=== PATIENT | female | born 1955 | race Caucasian/White ===

== ENCOUNTER 2019-11-27 09:15 | Day surgery (SDC) | payer OTHER ==
[2019-11-26 15:41] VITALS: BMI 30.4
[2019-11-27 11:12] VITALS: BP 130/76; PULSE 66
[2019-11-27 12:13] VITALS: TEMP 98
--- NOTE | 2019-12-01 17:08 | PATH ---
Surgical Pathology Report Patient Name: LIANNE SAUCEDA [facility]. Rec. #: [id number] /Age/Gender: 1955 (Age: 64) / F Account: [id number] Location: [facility] AM[facility] Taken: 11/27/2019 Received: 11/27/2019 Reported: 12/01/2019 Physicians: Roseann Corona M.D. Specimen(s) Received A: SECOND PORTION OF DUODENUM B: DUODENAL BULB AND POLYP C: ANTRUM D: GE JUNCTION Clinical History Dyspepsia, reflux Postoperative diagnosis: Ulcers, duodenal bulb polyp Final Diagnosis A. SECOND PORTION OF DUODENUM, BIOPSY: DUODENAL MUCOSA WITH NO PATHOLOGIC FINDINGS. B. DUODENAL BULB AND POLYP, BIOPSY: GASTRIC HETEROTOPIA WITH MODERATE CHRONIC INFLAMMATION. C. ANTRUM, BIOPSY: MILD CHRONIC GASTRITIS. IMMUNOSTAIN IS NEGATIVE FOR H. PYLORI ORGANISMS. D. GE JUNCTION, BIOPSY: ESOPHAGOGASTRIC JUNCTIONAL (SQUAMOCOLUMNAR) MUCOSA SHOWING INTESTINAL METAPLASIA, COMPATIBLE WITH CHAMPION'S ESOPHAGUS IN CONJUNCTION WITH APPROPRIATE ENDOSCOPIC FINDINGS. NEGATIVE FOR DYSPLASIA. Electronically Signed Leela Veloz M.D. Gross Description A. Received in formalin, labeled "second portion duodenum" is a dong, irregular portion of soft tissue measuring 0.6 cm. in greatest dimension. The specimen is submitted in toto in one cassette. B. Received in formalin, labeled "duodenal bulb and polyp" are 3 dong, irregular portions of soft tissue averaging 0.1 cm. in greatest dimension. The specimens are submitted in toto in one cassette. C. Received in formalin, labeled "antrum" is a dong, irregular portion of soft tissue measuring 0.7 cm. in greatest dimension. The specimen is submitted in toto in one cassette. D. Received in formalin, labeled "GE junction" is a dong, irregular portion of soft tissue measuring 0.3 cm. in greatest dimension. The specimen is submitted in toto in one cassette. 11/30/2019 [facility]11/30/2019
== END 2019-11-27 11:40 | disposition home or self-care (01) ==
LOC: FASU 09:15
PROVIDERS: ATTEND Internal Medicine Gastroenterology
PROC: 0DB68ZX Excision of Stomach, Via Natural or Artificial Opening Endoscopic, Diagnostic (ICD-10-PCS; 2019-11-27)
PROC: 0DB48ZX Excision of Esophagogastric Junction, Via Natural or Artificial Opening Endoscopic, Diagnostic (ICD-10-PCS; 2019-11-27)
PROC: 0DB98ZX Excision of Duodenum, Via Natural or Artificial Opening Endoscopic, Diagnostic (ICD-10-PCS; principal; 2019-11-27 10:19)
DX: K31.7 Polyp of stomach and duodenum (principal); K25.9 Gastric ulcer, unspecified as acute or chronic, without hemorrhage or perforation; K29.50 Unspecified chronic gastritis without bleeding; K29.80 Duodenitis without bleeding; K22.70 Barrett's esophagus without dysplasia; R10.13 Epigastric pain
CPT/HCPCS: 88305-TC; 88342-TC

== ENCOUNTER 2020-01-22 11:25 | Day surgery (SDC) | payer OTHER ==
--- OUTSIDE RECORDS SUMMARY | 2020-01-13 08:55 | XMS ---
:1955 Author Organization [facility] Care Team Providers Name Role Phone DallasSolitario abraham Dennis Unavailable Unavailable Tiffany Crane Unavailable Unavailable Radha Bess Unavailable Unavailable Jett Ferraro Unavailable Unavailable Landen Unavailable Unavailable Aditi ROD, Physician Unavailable Unavailable Re-disclosure Warning The records that you are about to access may contain information from federally- assisted alcohol or drug abuse programs. If such information is present, then the following federally mandated warning applies: This information has been disclosed to you from records protected by federal confidentiality rules (42 CFR part 2). The federal rules prohibit you from making any further disclosure of this information unless further disclosure is expressly permitted by the written consent of the person to whom it pertains or as otherwise permitted by 42 CFR part 2. A general authorization for the release of medical or other information is NOT sufficient for this purpose. The Federal rules restrict any use of the information to criminally investigate or prosecute any alcohol or drug abuse patient.The records that you are about to access may contain highly sensitive health information, the redisclosure of which is protected by Article 27-F of the [place] State Public Health law. If you continue you may haveaccess to information: Regarding HIV / AIDS; Provided by facilities licensed or operated by the [facility] Office of Mental Health; or Provided by the [facility] Office for People With Developmental Disabilities. If such information is present, then the following [facility] mandated warning applies: This information has been disclosed to you from confidential records which are protected by state law. State law prohibits you from making any further disclosure of this information without the specific written consent of the person to whom it pertains, or as otherwise permitted by law. Any unauthorized further disclosure in violation of state law may result in a fine or retirement sentence or both. A general authorization for the release of medical or other information is NOT sufficient authorization for further disclosure. Allergies and Adverse Reactions Type Description Substance Reaction Status Data Source(s ) SHELLFISH DERIVED SHELLFISH DERIVED NEXTGEN ([facility] ) Encounters Encounter Providers Location Date Indications Data Source(s ) Outpatient Attender: Solitario 11/05/2019 NEXTGEN ([facility] WisdomReferrer: 02:00:00 PM Medical - [place] [facility]) Outpatient Attender: Leisa 07/10/2019 NEXTGEN ([facility] AlasioReferrer: Kiki 12:00:00 AM Med ical - [place] [facility] ) Outpatient Attender: Kiki 07/02/2019 NEXTGEN ([facility] 02:12:00 PM [facility] [place] [facility] ) Outpatient Attender: Kiki 06/23/2019 NEXTGEN ([facility] TrakhtReferrer: Kiki 04:40:00 PM Med ica - [place] [facility] ) Outpatient Attender: Leisa 06/23/2019 NEXTGEN ([facility] AlasioReferrer: Kiki 12:00:00 AM Med [facility] - [place] [facility] ) Outpatient Attender: Cait 06/03/2019 NEXTGEN ( [facility] Ron[place] 03:51:00 PM [facility] - [place] [facility] ) Outpatient Attender: Kiki 09/26/2018 NEXTGEN ([facility] 12:29:00 PM [facility] [place] [facility] ) Outpatient Attender: Solitario 08/14/2018 NEXTGEN ([facility] [place] [facility]00:[facility] Outpatient Attender: Kiki 08/11/2018 NEXTGEN ([facility] 03:56:00 PM [facility] [place] [facility]) Outpatient Attender: Physician 08/11/2018 Manuel fonseca [facility] 10:07:22 AM Liz pate MDAdmitter: EDT - Medical [place] kaveh Physician Barbara 08/20/2018 Aditi ROD 11:59:59 PM EDT S Attender: Physician 08/09/2018 Manuel fonseca [facility] 10:11:24 AM Bradley Azul jakob MDAdmitter: EDT Center Physician Barbara Pennington MD Outpatient Attender: 08/06/2018 NEXTGEN ([facility] TrakhtReferrer: Kiki 12:00:00 AM Med ical - [place] [facility]) Outpatient Attender: 07/08/2018 NEXTGEN ([facility] 08:55:00 AM [facility] [place] [facility]) Outpatient Attender: 07/01/2018 NEXTGEN ([facility] TrakhtReferrer: Kiki 03:00:00 PM Med ical - [place] [facility]) Outpatient Attender: Leisa 07/01/2018 NEXTGEN ([facility] AlasioReferrer: Kiki 12:00:00 AM Med ical - [place] [facility]) Outpatient Attender: 06/03/2018 NEXTGEN ([facility] 04:41:00 PM Medical - [place] [facility]) Medications Medication Brand Start Product Dose Route Administrative Pharmacy [facility] Indications Reaction Description Data Name Date Form Instructions Instructions Source(s) pantoprazol PANTOP RP NEXTGE N e 40 MG RAZOLE ([facility] Delayed SODIUM Medical - Release [place] Oral Tablet Medical 40 mg 40 mg Group PC ) This may be an active medication. No end date is available. Start date above may not reflect actual date the medication was s tarted. Ofloxacin 3 OFLOXACIN 11/06/2019 instill 4 RP [facility] MG/ML Otic 12:00:00 AM EDT drop by otic ([facility] Solution 0.3 % route 2 times Medical - [place] 0.3 % every day [place] [facility] into affected Group PC) ear(s) for 3 days This may be an active medication. No end date is available. pantoprazole 40 PROTONIX 11/05/2019 take 1 twice RP [facility] MG Delayed 12:00:00 AM daily for 14 ([facility] Release Oral EDT days;1 daily Medical - [place] Tablet [Protonix] for 7 days [facility] 40 mg 40 mg then 1 every Group PC) other day follow up if symptoms persist. Betamethasone 0.5 LOTRISONE 09/26/2018 APPLY TO THE RP NEXTGEN MG/ML / 12:00:00 AM AFFECTED AND ([facility] Clotrimazole 10 EDT SURROUNDING Medical - [place] MG/ML Topical AREAS OF SKIN [facility] Cream [Lotrisone] TWO TIMES A Group PC) 1 %-0.05 % 1 DAY ( ONCE IN %-0.05 % THE MORNING AND ONCE IN THE EVENING ) This may be an active medication. No end date is available. Amoxicillin 875 AUGMENTIN 05/30/2017 take 1 RP [facility] MG / Clavulanate 12:00:00 AM EST tablet by ([facility] 125 MG Oral oral route Me dical - [place] Tablet every 12 [place] [facility] [Augmentin] 875 hours [facility]ra up PC) mg-125 mg 875 mg-125 mg This may be an active medication. No end date is available. Acetaminophen 325 PERCOCET 08/29/2016 take 1 - 2 RP [facility]EXT[facility] MG / Oxycodone 12:00:00 AM EDT tablet by ([facility] Hydrochloride 5 MG oral route Medical - [place] Oral Tablet every 4 - 6 [facility] [Percocet] 5 hours as [facility] up PC) mg-325 mg 5 mg-325 needed mg This may be an active medication. No end date is available. Levothyroxine LEVOTHYROXINE 05/05/2015 take 1 RP [facility]EXT[facility] Sodium 0.15 MG SODIUM 12:00:00 AM tablet by ([facility] Oral Tablet 150 EST oral Medi arlette - [place] mcg 150 mcg route [place] [facility] every day Group PC) This may be an active medication. No end date is available. Rosuvastatin CRESTOR 03/04/2015 take 1 RP NEXTGEN calcium 10 MG Oral 12:00:00 AM EST tablet by ([facility] Tablet [Crestor] oral route Medical - [facility] 10 mg 10 mg every day [facility]) This may be an active medication. No end date is available. Omeprazole 20 OMEPRAZOLE 11/08/2014 take 1 RP [facility]EXT[facility] MG Delayed 12:00:00 AM EDT capsule by ([facility] Release Oral oral route M edical - [facility] Capsule 20 mg every day [facility] 20 mg before a Group PC) meal This may be an active medication. No end date is available. 10 mg 10 mg 11/08/2014 12:00:00 take 1 tablet by R P NEXTGEN ([facility] AM EDT oral route Medical - [place] every day in the Med ical Group PC) evening This may be an active medication. No end date is available. 200 ACTUAT PROAIR HFA 08/02/2014 inhale 2 puff RP NEXTGEN Albuterol 0.09 12:00:00 AM EDT by inhalation ([facility] MG/ACTUAT route every 4 Medical - [facility] Metered Dose - 6 hours as [facility] Inhaler needed Group PC) [ProAir] 90 mcg 90 mcg This may be an active medication. No end date is available. Hydrocortisone 25 ANUSOL-HC 04/19/2014 apply by RP [facility] MG/ML Topical 12:00:00 AM topical ([facility] Cream [Anusol HC] EST route 2 Medical - [facility] 2.5 % 2.5 % times every [facility] day to the Group PC) affected area(s) This may be an active medication. No end date is available. 0.3 mg/0.3 mL 04/20/2013 use as directed RP NEXTGEN (1:1,000) 0.3 12:00:00 AM EST ([facility] mg/0.3 mL Medical - [place] (1:1,000) [place] [facility]) This may be an active medication. No end date is available. Cyclobenzaprine Flexeril 10 04/18/2013 10.0 Oral Nuvance hydrochloride 10 mg oral 04:28:00 PM mg 10 mg, = 1 tab, Oral, BID, # 15 tab, 0 Refill(s), for spasm Health - MG Oral Tablet tablet EST Vas patrick Flexeril 10 mg [facility] oral tablet [facility] omeprazole [id number] 04/18/2013 N uvance 01:31:00 PM 0 Refill(s) H ealth - EST [facility] Singulair [id number] 04/18/2013 Nu jerez 01:31:00 PM 0 Refill(s) H ealth - EST [facility] Crestor [id number] 04/18/2013 Nuva nce 01:31:00 PM 0 Refill(s) H ealt - EST [facility] Levothyroxine Synthroid 04/18/2013 Nuvance Sodium 0.175 MG 175 mcg 01:31:00 PM 0 Refill(s) Health - Oral Tablet (0.175 mg) EST Va ssar Synthroid 175 mcg oral tablet [facility] (0.175 mg) oral Medi arlette tablet Center Insurance Providers Payer name Policy type Policy ID Covered Covered alliance party's Policy P ulices / Coverage alliance party ID relationship to Mcmahon Inf ormation type mcmahon AETNA O [id number] SP [id number] AETN Aet [id number] [facility] [id number] 1 [id number] Health Plan [place] Problems, Conditions, and Diagnoses Code Display Name Description Problem Type Effective Data Dates Source(s) K21.9 Gastro-esophageal Laryngopharyngeal Diagnosis 11/05/2019 NEXTGEN reflux disease reflux (LPR) 02:00:00 PM ([facility] without EDT [facility] esophagitis [facility] Group PC) H61.23 Impacted cerumen, Bilateral impacted Diagnosis 11/05/2019 NEXTGEN bilateral cerumen 02:00:00 PM ([facility] EDT [facility] Group PC) Z01.419 Encounter for Encounter for Diagnosis 06/23/2019 NEXTGEN gynecological gynecological 04:40:00 PM ([facility] examination examination EDT [facility] (general) [facility] (routine) without Group P C) abnormal findings N76.3 Subacute and Subacute vulvitis Diagnosis 07/01/2018 NEXTG EN chronic vulvitis 03:00:00 PM ([facility] EDT [facility] Group PC) Surgeries/Procedures Procedure Description Date Indications Data Source(s) DIAGNOSTIC DIAGNOSTIC 11/05/2019 NEXTGEN ([facility] LARYNGOSCOPY [facility] REMOVE IMPACTED EAR REMOVE IMPACTED EAR 11/05/2019 N EXTGEN ([facility] WAX UNI WAX UNI 12:00:00 AM [facility] Medical Group P C) OFFICE/OUTPATIENT OFFICE/OUTPATIENT 11/05/2019 NEXTG EN ([facility] VISIT NEW VISIT NEW 12:00:00 AM [facility] Medical Group P C) PREV VISIT EST AGE PREV VISIT EST AGE 0306/23/2019 NEX TGEN ([facility] 40-64 40-64 12:00:00 AM [facility] Medical Group P C) Results ID Date Data Source [id number] 11/23/2019 11:39:00 AM EDT [facility] Name Value Range Interpretation Description Data Sup porting Code Source(s) Document(s ) SARS [facility] coronavirus 2 RNA This lab was ordered by JAROD ZHOU and reported by [facility]. Procedure Social History Code Duration Value Status Description Data Source(s ) Smoking completed [facility] Patient Treatment Plan of Care Planned Activity Planned Date Details Description Data Source (s) No data available for this N [facility] - section [facility] Cyclobenzaprine 04/18/2013 [facility] th - hydrochloride 10 MG Oral 04:28:00 PM [facility] Levothyroxine Sodium 0.175 04/18/2013 N [facility] - MG Oral Tablet 01:31:00 PM [facility] Singulair 04/18/2013 [facility] - 01:31:00 PM EST [facility] omeprazole 04/18/2013 [facility] - 01:31:00 PM EST [facility] Crestor 04/18/2013 [facility] - 01:31:00 PM [facility]
[2020-01-19 09:46] VITALS: BMI 30.4
--- OUTSIDE RECORDS SUMMARY | 2020-01-22 11:48 | XMS ---
:1955 Author Organization [facility] Care Team Providers Name Role Phone Solitario Kim Unavailable Unavailable Ana M Falcon Unavailable Unavailable Tiffany Crane Unavailable Unavailable Radha Bess Unavailable Unavailable Ronan, Jett Unavailable Unavailable Landen Unavailable Unavailable Re-disclosure Warning The records that [...] is protected by Article 27-F of the [place] State Public Health law. If you continue you may haveaccess to information: Regarding HIV / AIDS; Provided by facilities licensed or operated by the [facility] Office of Mental Health; or Provided by the [facility] Office for People With Developmental Disabilities. If such information is present, then the following [facility] mandated warning applies: This information has been [...] law may result in a fine or correction sentence or both. A general authorization for the release of medical or other information is NOT sufficient authorization for further disclosure. Allergies and Adverse Reactions Type Description Substance Reaction Status Data Source(s ) SHELLFISH DERIVED SHELLFISH DERIVED NEXTGEN ([facility] [place] [facility] ) Encounters Encounter Providers Location Date Indications Data Source(s ) Outpatient Attender: Cosme 12/09/2019 NEXTGEN ( [facility] [place] 12:00:00 AM [facility] - [place] [facility] ) Outpatient Attender: Solitario 11/05/2019 NEXTGEN ([facility] WisdomReferrer: 02:00:00 PM [facility] - [place] [facility] Outpatient Attender: Leisa 07/10/2019 NEXTGEN ([facility] AlasioReferrer: Kiki 12:00:00 AM Med ical - [place] [facility] ) Outpatient Attender: Kiki 07/02/2019 NEXTGEN ([facility] 02:12:00 PM Medical - [place] [facility] ) Outpatient Attender: Kiki 06/23/2019 NEXTGEN ([facility] TrakhtReferrer: Kiki 04:40:00 PM Med ical - [place] [facility] ) Outpatient Attender: Leisa 06/23/2019 NEXTGEN ([facility] AlasioReferrer: Kiki 12:00:00 AM Med ical - [place] [facility] ) Outpatient Attender: Cait 06/03/2019 NEXTGEN ( [facility] [place] 03:51:00 PM Medical - [place] [facility] ) Outpatient Attender: Solitario 08/14/2018 NEXTGEN ([facility] [place] 12:00:00 AM [facility] - [place] [facility] ) Medications Medication Brand Start Product Dose Route Administrative Pharmacy [facility] Indications Reaction Description Data Name Date Form [...] hours as [facility] [facility] Inhaler needed Group ) [ProAir] 90 mcg 90 mcg This may [...] ([facility] mg/0.3 mL Medical - [place] (1:1,000) [facility]) This may be an active medication. No end date is available. Insurance Providers Payer name Policy type Policy ID Covered Covered green party's Policy P ulices / Coverage green party ID relationship to Mcmahon Inf ormation type mcmahon AETNA HMO [id number] SP [id number] AETN Aetna [id number] [facility] [id number] Health Plan [place] Problems, Conditions, and Diagnoses Code Display Name Description Problem Type Effective Data Dates Source(s) K21.9 Gastro-esophageal Laryngopharyngeal Diagnosis 11/05/2019 NEXTGEN reflux disease reflux (LPR) 02:00:00 PM ([facility] without EDT Medical - [place] esophagitis [facility] Group PC) H61.23 Impacted cerumen, Bilateral impacted Diagnosis 11/05/2019 NEXTGEN bilateral cerumen 02:00:00 PM ([facility] EDT Medical - [facility] Group [facility]) Z01.419 Encounter for Encounter for Diagnosis 06/23/2019 NEXTGEN gynecological gynecological 04:40:00 PM ([facility] examination examination EDT Medical - [place] (general) [facility] (routine) without Group P C) abnormal findings Surgeries/Procedures Procedure Description Date Indications Data Source(s) DIAGNOSTIC DIAGNOSTIC 11/05/2019 NEXTGEN ([facility] LARYNGOSCOPY LARYNGOSCOPY 12:00:00 AM [facility]) REMOVE IMPACTED EAR REMOVE IMPACTED EAR 11/05/2019 N EXTGEN ([facility] WAX UNI WAX UNI 12:00:00 AM [facility]) OFFICE/OUTPATIENT OFFICE/OUTPATIENT 11/05/2019 NEXTG EN ([facility] VISIT NEW VISIT NEW 12:00:00 AM [facility] P [facility]) PREV VISIT EST AGE PREV VISIT EST AGE 0306/23/2019 NEX TGEN ([facility] 40-64 40-64 12:00:00 AM [facility]) Results ID Date Data Source [id number] 01/18/2020 11:45:00 AM EDT [facility] Name Value Range Interpretation Description Data Sup porting Code Source(s) Document(s ) SARS [facility] coronavirus 2 RNA This lab was ordered by JAROD ZHOU and reported by [facility]. ID Date Data Source [id number] 11/23/2019 11:39:00 AM EDT [facility] Name Value Range Interpretation Description Data Sup porting Code Source(s) Document(s ) SARS [facility] coronavirus 2 RNA This lab was ordered by JAROD ZHOU and reported by [facility]. Procedure
[2020-01-22 14:14] VITALS: BP 105/71; PULSE 65; TEMP 97.6
--- NOTE | 2020-01-26 15:27 | PATH ---
Surgical Pathology Report Patient Name: LIANNE SAUCEDA [facility]. Rec. #: [id number] /Age/Gender: 1955 (Age: 64) / F Account: [id number] [facility] Taken: 01/22/2020 Received: 01/22/2020 Reported: 01/26/2020 Physicians: Roseann Corona M.D. Specimen(s) Received A: POLYP DUODENAL BULB B: ANTRUM C: GE JUNCTION D: POLYPECTOMY TRANSVERSE COLON AT 65CM E: POLYP SIGMOID COLON Clinical History Followup Champion's, family history of colon cancer Postoperative diagnosis: Duodenal bulb polyp, healed ulcers, Champion's esophagus, colon polyps, hemorrhoids Final Diagnosis A. DUODENAL BULB, POLYP, BIOPSY: DUODENAL MUCOSA WITH SEVERE CHRONIC DUODENITIS AND GASTRIC HETEROTOPIA. B. GASTRIC ANTRUM, BIOPSY: GASTRIC ANTRAL MUCOSA WITH MILD CHRONIC GASTRITIS. IMMUNOHISTOCHEMICAL STAIN FOR H. PYLORI IS NEGATIVE. C. GE JUNCTION, BIOPSY: SQUAMOCOLUMNAR MUCOSA WITH MODERATE CHRONIC INFLAMMATION, CHANGES OF MODERATE REFLUX ESOPHAGITIS, AND INTESTINAL METAPLASIA CONSISTENT WITH CHAMPION'S ESOPHAGUS IN A CONCORDANT CLINICAL SETTING. NO DYSPLASIA IDENTIFIED. D. TRANSVERSE COLON, 65 CM, POLYPECTOMY: TUBULAR ADENOMA. E. SIGMOID COLON, POLYP, BIOPSY: HYPERPLASTIC POLYP. Positive and negative controls (internal if applicable) show appropriate results. Electronically Signed Roseann Henderson M.D. Gross Description A. Received in formalin, labeled "biopsy polyp duodenal bulb" is a dong, irregular portion of soft tissue measuring 0.4 cm. in greatest dimension. The specimen is submitted in toto in one cassette. B. Received in formalin, labeled "biopsy gastric antrum" is a dong, irregular portion of soft tissue measuring 0.5 cm. in greatest dimension. The specimen is submitted in toto in one cassette. C. Received in formalin, labeled "biopsy GE junction" are 6 dong, irregular portions of soft tissue ranging from 0.1-0.4 cm. in greatest dimension. The specimens are submitted in toto in one cassette. D. Received in formalin, labeled "transverse colon" are 2 dong, irregular portions of soft tissue measuring 0.2 and 0.3 cm. in greatest dimension. The specimens are submitted in toto in one cassette. E. Received in formalin, labeled "biopsy polyp sigmoid colon" are 2 dong, irregular portions of soft tissue measuring 0.2 and 0.3 cm. in greatest dimension. The specimens are submitted in toto in one cassette. 01/25/2020 [facility]01/25/2020
== END 2020-01-22 14:20 | disposition home or self-care (01) ==
LOC: FASU-ENDO 11:25
PROVIDERS: ATTEND Internal Medicine Gastroenterology
PROC: 0DBN8ZX Excision of Sigmoid Colon, Via Natural or Artificial Opening Endoscopic, Diagnostic (ICD-10-PCS; 2020-01-22)
PROC: 0DB98ZX Excision of Duodenum, Via Natural or Artificial Opening Endoscopic, Diagnostic (ICD-10-PCS; 2020-01-22)
PROC: 0DB68ZX Excision of Stomach, Via Natural or Artificial Opening Endoscopic, Diagnostic (ICD-10-PCS; 2020-01-22)
PROC: 0DB58ZX Excision of Esophagus, Via Natural or Artificial Opening Endoscopic, Diagnostic (ICD-10-PCS; 2020-01-22)
PROC: 0DBL8ZX Excision of Transverse Colon, Via Natural or Artificial Opening Endoscopic, Diagnostic (ICD-10-PCS; principal; 2020-01-22 12:44)
DX: Z12.11 Encounter for screening for malignant neoplasm of colon (principal); D12.3 Benign neoplasm of transverse colon; D12.5 Benign neoplasm of sigmoid colon; Z87.19 Personal history of other diseases of the digestive system; K64.3 Fourth degree hemorrhoids; K64.4 Residual hemorrhoidal skin tags; K29.80 Duodenitis without bleeding; K29.50 Unspecified chronic gastritis without bleeding; K31.89 Other diseases of stomach and duodenum; K22.70 Barrett's esophagus without dysplasia; Z09 Encounter for follow-up examination after completed treatment for conditions other than malignant neoplasm
CPT/HCPCS: 88305-TC; 88342-TC

== ENCOUNTER 2021-04-25 08:41 | Day surgery (SDC) | payer OTHER ==
[2021-04-20 10:45] VITALS: BMI 29.6
[2021-04-25] MEDS ORDERED: PROPOFOL 20 ML ONE ×4 (09:24)
[2021-04-25] MEDS ORDERED: LIDOCAINE HCL/PF 2% SDV 5ML VIAL ONE (09:24)
[2021-04-25 11:15] VITALS: BP 124/76; TEMP 97.6
[2021-04-25 11:16] VITALS: PULSE 85
== END 2021-04-25 11:00 | disposition home or self-care (01) ==
LOC: FASU 08:41
PROVIDERS: ATTEND Internal Medicine Gastroenterology
PROC: 0DB68ZX Excision of Stomach, Via Natural or Artificial Opening Endoscopic, Diagnostic (ICD-10-PCS; 2021-04-25)
PROC: 0DB58ZX Excision of Esophagus, Via Natural or Artificial Opening Endoscopic, Diagnostic (ICD-10-PCS; 2021-04-25)
PROC: 0DB98ZX Excision of Duodenum, Via Natural or Artificial Opening Endoscopic, Diagnostic (ICD-10-PCS; principal; 2021-04-25 10:16)
DX: K22.70 Barrett's esophagus without dysplasia (principal); K25.9 Gastric ulcer, unspecified as acute or chronic, without hemorrhage or perforation; K44.9 Diaphragmatic hernia without obstruction or gangrene; R10.13 Epigastric pain
CPT/HCPCS: 88305-TC; 88342-TC